=== PATIENT | female | born 1960 | race Caucasian/White ===

== ENCOUNTER 2016-07-18 03:53 | Emergency (ER) | payer OTHER ==
[~2016-07-18] VITALS: Ht 172.7 cm; Wt 49.6 kg
[~2016-07-18 03:53] MED LIST: ACTOS15 MG; ACTOS15 MG PO; ALBUTEROL SULF8.5 GM IH; ASPIR-LOW81 MG PO; ASPIRIN EC325 MG PO; ASPIRIN325 MG PO; ATARAX,VISTARIL25 MG PO; ATIVAN0.5 MG PO; BENADRYL25 MG PO; CELEXA20 MG PO; CELEXA40 MG PO; CHOLESTEROL MED; CHOLESTEROL PO; CITALOPRAM HBR20 MG PO; CITALOPRAM HBR40 M1 PO; CITALOPRAM HBR40 MG; CITALOPRAM HBR40 MG PO; COUMADIN,JANTOVE1 MG PO; COUMADIN1 MG PO; COUMADIN5 MG PO; COUMADIN7.5 MG PO; CRESTOR10 MG; CRESTOR10 MG PO; Coumadin,Jantoven PO; DEPRESSION MED; DOXYCYCLINE HY100 MG PO; DULCOLAX10 MG PR; ELIMITE 5% CREA60 GM TP; ESCITALOPRAM OX20 MG PO; Ecotrin PO; FLEET ENEMA-AD118 ML PR; FUROSEMIDE20 MG PO; GLUCOPHAGE500 MG PO; IPRATR-ALBUTEROL3 ML IH; IPRATROPIU0.2 MG/1 M IH; KENALOG,ARISTOC15 G2 TP; LAC-HYDRIN 12%225 GM TP; LASIX20 MG PO; LEVOFLOXACIN750 MG PO; LEVOTHROID,S0.075 MG PO; LEVOTHROID88 MCG PO; LEVOTHYROXINE100 MCG; LEVOTHYROXINE75 MCG PO; LEVOTHYROXINE88 MCG PO; LEXAPRO20 MG PO; LIDEX 0.05% OIN15 GM TP; LO-DOSE ASPIRIN81 M1 PO; LOPERAMIDE2 M1 PO; LOPERAMIDE2 MG PO; LORAZEPAM0.5 MG PO; LOVENOX100 MG/1 M PO; LOW DOSE ASPIRI81 M1 PO; Lasix PO; MITRAZOL 2% CRE45 GM TP; MOBIC15 MG PO; MOTRIN400 MG PO; NEXIUM40 MG PO; NITROGLYCERIN0.4 MG SL; NITROSTAT0.4 MG SL; NOVOLOG100 UNIT/2 SC; NOVOLOG100 UNIT/3; OMEPRAZOLE20 MG; OMEPRAZOLE20 MG PO; ONDANSETRON HCL4 M1; PANTOPRAZOLE SO40 MG; PHENERGAN-CODE120 ML PO; PHILLIPS'400 MG/5 M PO; PIOGLITAZONE HC15 MG; PREDNISONE10 MG PO; PREDNISONE20 MG PO; PREDNISONE50 MG PO; PREVACID; PRILOSEC20 MG PO; PROAIR HFA8.5 GM; PROAIR HFA8.5 GM IH; PROMETHAZINE HC25 M1 PO; PROVENTIL,2.5 MG/3 M IH; RANITIDINE HCL150 M1 PO; RANITIDINE HCL150 MG PO; ROBITUSSIN100 MG/5 M PO; SIMVASTATIN10 MG PO; SIMVASTATIN40 M1 PO; SIMVASTATIN80 M1 PO; SPIRIVA1 INHALATI; SPIRIVA1 INHALATI IH; SYNTHROID PO; SYNTHROID75 MCG PO; SYNTHROID88 MCG PO; THEO-24200 MG PO; THEO-24400 MG PO; THEO-DUR,THEOC200 MG PO; THEOPHYLLINE A200 M1 PO; TIROSINT75 MCG PO; TYLENOL REGULA325 MG PO; ULTRAM50 MG PO; VANICREAM113 GM TP; WARFARIN SODIUM5 MG; XARELTO20 MG PO; Xarelto PO; ZANTAC150 MG PO; ZOFRAN ODT4 MG PO; ZOFRAN4 MG PO; ZOFRAN8 MG PO; Zofran PO; [UNRECOGNIZED DRUG - OTHER]
[2016-07-18 04:27] LABS: HEMATOCRIT 34.4 % (36.0-46.0); MCH 30.1 PG (29.0-34.0); MCHC 33.7 G/DL (30.0-36.0); MCV 89.4 FL (83-99); MEAN PLAT.VOLUME 8.8 uM^3 (9.5-12.4); PLATELET COUNT 228 K/uL (156-360); RBC DIS.WIDTH-CV 12.7 % (11.8-14.6); RBC DIS.WIDTH-SD 40.3 % (39-53); RED BLOOD COUNT 3.85 M/uL (3.80-5.20); WHITE BLOOD COUNT 5.4 K/uL (4.1-10.2)
[2016-07-18 04:45] LABS: TROP-I INTERPRETATION NEGATIVE; TROPONIN-I < 0.01 ng/mL (0.0-0.30)
[2016-07-18 04:47] LABS: CHLORIDE 107 mEq/L (99-109); SODIUM 140 mEq/L (136-147)
[2016-07-18 04:48] LABS: GLUCOSE 95 mg/dL (70-99)
[2016-07-18 04:50] LABS: ANION GAP 8 MEQ/L (2-14)
[2016-07-18 04:52] LABS: GFR ESTIMATE (CALCULATED) > 59 mL/min/
[2016-07-18 04:53] LABS: UREA NITROGEN (BUN) 14 mg/dL (9-23)
[2016-07-18 05:55] LABS: TROP-I INTERPRETATION NEGATIVE; TROPONIN-I < 0.01 ng/mL (0.0-0.30)
[2016-07-18 06:27] VITALS: BP 103/66
== END 2016-07-18 07:22 ==
LOC: EME → EDBD 03:53 → EME 03:53
PROVIDERS: Emergency Medicine
DX: R07.9 Chest pain, unspecified (principal); J45.909 Unspecified asthma, uncomplicated; J44.9 Chronic obstructive pulmonary disease, unspecified; E11.9 Type 2 diabetes mellitus without complications; E78.5 Hyperlipidemia, unspecified; F03.90 Unspecified dementia, unspecified severity, without behavioral disturbance, psychotic disturbance, mood disturbance, and anxiety; Z86.718 Personal history of other venous thrombosis and embolism; Z86.711 Personal history of pulmonary embolism; F17.200 Nicotine dependence, unspecified, uncomplicated
CPT/HCPCS: 71020; 80048; 83880; 84484; 85027; 93005; 99281; 99285

== ENCOUNTER 2016-09-18 13:25 | Emergency (ER) | payer OTHER ==
[~2016-09-18] VITALS: Ht 172.7 cm; Wt 98.1 kg
[2016-09-18 14:18] LABS: EOSINOPHIL (%) 2.8 % (0-5); EOSINOPHIL COUNT 0.1 K/uL (0-0.3); HEMATOCRIT 35.7 % (36.0-46.0); IMMATURE GRANULOCYTE (%) 0.3 % (0.0-0.7); INSTRUMENT ABS NEUTROPHIL CT 1.9 K/uL; LYMPHOCYTE COUNT 1.6 K/uL (1.0-2.8); MCH 28.5 PG (29.0-34.0); MCHC 33.1 G/DL (30.0-36.0); MCV 86.2 FL (83-99); MEAN PLAT.VOLUME 9.5 uM^3 (9.5-12.4); MONOCYTE (%) 8.3 % (3-12); MONOCYTE COUNT 0.3 K/uL (0-0.8); NEUTROPHIL (%) 48.5 % (45-76); NEUTROPHIL COUNT 1.9 K/uL (1.8-6.4); PLATELET COUNT 211 K/uL (156-360); RBC DIS.WIDTH-CV 13.2 % (11.8-14.6); RBC DIS.WIDTH-SD 41.1 % (39-53); RED BLOOD COUNT 4.14 M/uL (3.80-5.20)
[2016-09-18 14:27] LABS: INTER. NORMALIZED RATIO 1.1; PROTHROMBIN TIME 11.5 (9.2-11.2); PTT 29.4 (25-32)
[2016-09-18 14:32] LABS: CHLORIDE 109 mEq/L (99-109); POTASSIUM 3.7 mEq/L (3.7-5.4); SODIUM 143 mEq/L (136-147)
[2016-09-18 14:33] LABS: GLUCOSE 90 mg/dL (70-99)
[2016-09-18 14:35] LABS: ANION GAP 14 MEQ/L (2-14)
[2016-09-18 14:37] LABS: GFR ESTIMATE (CALCULATED) > 59 mL/min/
[2016-09-18 14:38] LABS: UREA NITROGEN (BUN) 9 mg/dL (9-23)
[2016-09-18 14:38] LABS: TROP-I INTERPRETATION NEGATIVE; TROPONIN-I < 0.01 ng/mL (0.0-0.30)
[2016-09-18 17:07] LABS: TROP-I INTERPRETATION NEGATIVE; TROPONIN-I < 0.01 ng/mL (0.0-0.30)
[2016-09-18 17:57] VITALS: BP 119/65
== END 2016-09-18 18:04 ==
LOC: EME → EDBD 13:25 → EME 18:04
PROVIDERS: Emergency Medicine
DX: R07.89 Other chest pain (principal); F41.9 Anxiety disorder, unspecified; J45.909 Unspecified asthma, uncomplicated; J44.9 Chronic obstructive pulmonary disease, unspecified; E11.9 Type 2 diabetes mellitus without complications; E78.5 Hyperlipidemia, unspecified; F03.90 Unspecified dementia, unspecified severity, without behavioral disturbance, psychotic disturbance, mood disturbance, and anxiety; K21.9 Gastro-esophageal reflux disease without esophagitis; Z86.718 Personal history of other venous thrombosis and embolism; Z86.711 Personal history of pulmonary embolism; F17.200 Nicotine dependence, unspecified, uncomplicated
CPT/HCPCS: 71010; 80048; 84484; 85025; 85610; 85730; 93005; 94640; 99281; 99285

== ENCOUNTER 2016-10-24 22:48 | Emergency (ER) | payer OTHER ==
[~2016-10-24] VITALS: Ht 172.7 cm; Wt 71.3 kg
[2016-10-24] MEDS ORDERED: KEFLEX500 MG PO (23:17)
[2016-10-25 01:24] VITALS: BP 100/65
== END 2016-10-25 01:37 ==
LOC: EME 22:48
DX: L03.116 Cellulitis of left lower limb (principal); J45.909 Unspecified asthma, uncomplicated; J44.9 Chronic obstructive pulmonary disease, unspecified; E11.9 Type 2 diabetes mellitus without complications; E78.5 Hyperlipidemia, unspecified; F03.90 Unspecified dementia, unspecified severity, without behavioral disturbance, psychotic disturbance, mood disturbance, and anxiety; Z86.718 Personal history of other venous thrombosis and embolism; Z86.711 Personal history of pulmonary embolism; F17.200 Nicotine dependence, unspecified, uncomplicated
CPT/HCPCS: 99281; 99284

== ENCOUNTER 2016-11-24 14:58 | Emergency (ER) | payer OTHER ==
[~2016-11-24] VITALS: Ht 172.7 cm; Wt 73.2 kg
[~2016-11-24 14:58] MED LIST changes: +KEFLEX500 MG PO
[2016-11-24 16:57] LABS: HEMATOCRIT 34.7 % (36.0-46.0); MCHC 33.1 G/DL (30.0-36.0); MCV 87.6 FL (83-99); PLATELET COUNT 204 K/uL (156-360); RBC DIS.WIDTH-CV 14.3 % (11.8-14.6); RBC DIS.WIDTH-SD 46.1 % (39-53); RED BLOOD COUNT 3.96 M/uL (3.80-5.20); WHITE BLOOD COUNT 4.4 K/uL (4.1-10.2)
[2016-11-24 17:07] LABS: CHLORIDE 108 mEq/L (99-109); POTASSIUM 3.6 mEq/L (3.7-5.4); SODIUM 143 mEq/L (136-147)
[2016-11-24 17:08] LABS: GLUCOSE 101 mg/dL (70-99)
[2016-11-24 17:10] LABS: ANION GAP 10 MEQ/L (2-14)
[2016-11-24 17:12] LABS: GFR ESTIMATE (CALCULATED) 55 mL/min/
[2016-11-24 17:13] LABS: UREA NITROGEN (BUN) 12 mg/dL (9-23)
[2016-11-24 17:20] LABS: TROP-I INTERPRETATION NEGATIVE; TROPONIN-I < 0.01 ng/mL (0.0-0.30)
[2016-11-24] MEDS ORDERED: PREDNISONE50 MG PO (17:34)
[2016-11-24 18:49] VITALS: BP 112/74
== END 2016-11-24 18:50 ==
LOC: EME 14:58
PROVIDERS: Emergency Medicine
DX: J44.1 Chronic obstructive pulmonary disease with (acute) exacerbation (principal); I20.9 Angina pectoris, unspecified; E11.9 Type 2 diabetes mellitus without complications; E78.5 Hyperlipidemia, unspecified; F17.200 Nicotine dependence, unspecified, uncomplicated; Z95.828 Presence of other vascular implants and grafts; Z88.2 Allergy status to sulfonamides
CPT/HCPCS: 71020; 80048; 84484; 85027; 93005; 94640; 99281; 99285; J7512

== ENCOUNTER 2017-01-12 13:06 | Emergency (ER) | payer OTHER ==
[~2017-01-12] VITALS: Ht 172.7 cm; Wt 72.4 kg
[2017-01-12 15:02] LABS: HEMATOCRIT 33.9 % (36.0-46.0); MCH 29.8 PG (29.0-34.0); MCHC 32.2 G/DL (30.0-36.0); MCV 92.6 FL (83-99); MEAN PLAT.VOLUME 9.2 uM^3 (9.5-12.4); PLATELET COUNT 207 K/uL (156-360); RBC DIS.WIDTH-SD 51.4 % (39-53); RED BLOOD COUNT 3.66 M/uL (3.80-5.20); WHITE BLOOD COUNT 4.5 K/uL (4.1-10.2)
[2017-01-12 15:13] LABS: CHLORIDE 113 mEq/L (99-109); POTASSIUM 3.8 mEq/L (3.7-5.4); SODIUM 142 mEq/L (136-147)
[2017-01-12 15:15] LABS: GLUCOSE 99 mg/dL (70-99)
[2017-01-12 15:16] LABS: ANION GAP 5 MEQ/L (2-14)
[2017-01-12 15:17] LABS: TOTAL BILIRUBIN 0.6 mg/dL (0.0-1.0)
[2017-01-12 15:18] LABS: ALKALINE PHOSPHATASE 72 IU/L (3-129)
[2017-01-12 15:19] LABS: GFR ESTIMATE (CALCULATED) > 59 mL/min/
[2017-01-12 15:20] LABS: UREA NITROGEN (BUN) 5 mg/dL (9-23)
[2017-01-12 15:23] LABS: TROP-I INTERPRETATION NEGATIVE; TROPONIN-I < 0.01 ng/mL (0.0-0.30)
[2017-01-12 15:44] LABS: ADD MIUA? YES; BILIRUBIN NEGATIVE; BLOOD NEGATIVE; COLOR YELLOW ((YELLOW)); GLUCOSE (STRIP) NEGATIVE; KETONES NEGATIVE; LEUKOCYTES SMALL; NITRITE NEGATIVE; PROTEIN (STRIP) NEGATIVE; SPECIFIC GRAVITY 1.018 (1.000-1.030)
[2017-01-12 15:48] LABS: BACTERIA NONE SEEN /HPF; EPITHELIAL CELLS RARE /HPF; MUCUS 2+ /LPF; RED BLOOD CELLS 0-5 /HPF (0-5); UCUL ADDED? NO; WHITE BLOOD CELLS 0-5 /HPF (0-5)
[2017-01-12] MEDS ORDERED: KEFLEX500 MG PO (16:10)
[2017-01-12 16:58] VITALS: BP 00/0
== END 2017-01-12 17:09 | disposition home or self-care (01) ==
LOC: EME 13:06
PROVIDERS: Nurse Practitioner Family
DX: N39.0 Urinary tract infection, site not specified (principal); M77.32 Calcaneal spur, left foot; G89.29 Other chronic pain; E78.5 Hyperlipidemia, unspecified; F32.9 Major depressive disorder, single episode, unspecified; J44.9 Chronic obstructive pulmonary disease, unspecified; F17.200 Nicotine dependence, unspecified, uncomplicated; Z86.718 Personal history of other venous thrombosis and embolism
CPT/HCPCS: 71020; 80053; 81003; 84484; 85027; 99281; 99283

== ENCOUNTER 2017-07-18 15:54 | Emergency (ER) | payer OTHER ==
[~2017-07-18] VITALS: Ht 172.7 cm; Wt 69.0 kg
[2017-07-18 16:28] LABS: HEMATOCRIT 37.2 % (36.0-46.0); HEMOGLOBIN 12.3 G/DL (11.9-15.5); MCH 30.7 PG (29.0-34.0); MCHC 33.1 G/DL (30.0-36.0); MCV 92.8 FL (83-99); PLATELET COUNT 265 K/uL (156-360); RBC DIS.WIDTH-CV 13.5 % (11.8-14.6); RBC DIS.WIDTH-SD 45.9 % (39-53); RED BLOOD COUNT 4.01 M/uL (3.80-5.20); WHITE BLOOD COUNT 5.1 K/uL (4.1-10.2)
[2017-07-18 16:38] LABS: ALBUMIN 3.8 g/dL (3.2-4.8); CHLORIDE 108 mEq/L (99-109); POTASSIUM 4.5 mEq/L (3.7-5.4); SODIUM 141 mEq/L (136-147)
[2017-07-18 16:41] LABS: GLUCOSE 109 mg/dL (70-99); TOTAL PROTEIN 6.7 g/dL (6.4-8.3)
[2017-07-18 16:43] LABS: TOTAL BILIRUBIN 0.9 mg/dL (0.0-1.0)
[2017-07-18 16:44] LABS: ALKALINE PHOSPHATASE 92 IU/L (3-129); CREATININE 1.1 mg/dL (0.6-1.3); GFR ESTIMATE (CALCULATED) 55 mL/min/
[2017-07-18 16:45] LABS: UREA NITROGEN (BUN) 7 mg/dL (9-23)
[2017-07-18 16:46] LABS: AST (GOT) 14 IU/L (2-34)
[2017-07-18 16:47] LABS: ALT (GPT) 9 IU/L (3-49)
[2017-07-18 16:50] LABS: APPEARANCE CLOUDY ((CLEAR)); BILIRUBIN NEGATIVE; BLOOD MODERATE; COLOR AMBER ((YELLOW)); GLUCOSE (STRIP) NEGATIVE; KETONES NEGATIVE; LEUKOCYTES LARGE; NITRITE NEGATIVE; PROTEIN (STRIP) 100; SPECIFIC GRAVITY 1.017 (1.000-1.030); UROBILINOGEN 0.2 MG/DL (0.2-1.0)
[2017-07-18 17:09] LABS: EPITHELIAL CELLS RARE /HPF; RED BLOOD CELLS 30-40 /HPF (0-5); WHITE BLOOD CELLS TNTC /HPF (0-5)
[2017-07-18 17:10] LABS: BACTERIA 1+ /HPF; HYALINE CASTS 0-5 /LPF; MUCUS 1+ /LPF; UCUL ADDED? YES
[2017-07-18] MEDS ORDERED: ZOFRAN4 MG PO (18:44)
[2017-07-18] MEDS ORDERED: KEFLEX500 MG PO (18:44)
[2017-07-18 19:48] VITALS: BP 125/73
== END 2017-07-18 20:04 | disposition home or self-care (01) ==
LOC: EME 15:54
PROVIDERS: Physician Assistant
DX: N39.0 Urinary tract infection, site not specified (principal); R11.2 Nausea with vomiting, unspecified; R19.7 Diarrhea, unspecified; R55 Syncope and collapse; K44.9 Diaphragmatic hernia without obstruction or gangrene; F03.90 Unspecified dementia, unspecified severity, without behavioral disturbance, psychotic disturbance, mood disturbance, and anxiety; J44.9 Chronic obstructive pulmonary disease, unspecified; E78.00 Pure hypercholesterolemia, unspecified; Z90.710 Acquired absence of both cervix and uterus; Z90.49 Acquired absence of other specified parts of digestive tract; Z86.711 Personal history of pulmonary embolism; Z86.718 Personal history of other venous thrombosis and embolism; Z79.01 Long term (current) use of anticoagulants; Z88.2 Allergy status to sulfonamides; F17.210 Nicotine dependence, cigarettes, uncomplicated
CPT/HCPCS: 74176; 80053; 81003; 85027; 87077; 87086; 87186; 87502; 93005; 99281; 99285; J0696; J7030

== ENCOUNTER 2017-08-07 15:28 | Emergency (ER) | payer OTHER ==
[~2017-08-07] VITALS: Ht 172.7 cm; Wt 66.5 kg
[2017-08-07 17:49] LABS: HEMATOCRIT 37.3 % (36.0-46.0); HEMOGLOBIN 12.3 G/DL (11.9-15.5); MCH 30.6 PG (29.0-34.0); MCV 92.8 FL (83-99); PLATELET COUNT 228 K/uL (156-360); RBC DIS.WIDTH-CV 13.2 % (11.8-14.6); RBC DIS.WIDTH-SD 44.9 % (39-53); RED BLOOD COUNT 4.02 M/uL (3.80-5.20); WHITE BLOOD COUNT 4.9 K/uL (4.1-10.2)
[2017-08-07 18:01] LABS: CHLORIDE 110 mEq/L (99-109); POTASSIUM 4.3 mEq/L (3.7-5.4); SODIUM 140 mEq/L (136-147)
[2017-08-07 18:03] LABS: GLUCOSE 87 mg/dL (70-99)
[2017-08-07 18:07] LABS: GFR ESTIMATE (CALCULATED) > 59 mL/min/
[2017-08-07 18:08] LABS: UREA NITROGEN (BUN) 10 mg/dL (9-23)
[2017-08-07 18:12] LABS: TROP-I INTERPRETATION NEGATIVE; TROPONIN-I < 0.01 ng/mL (0.0-0.30)
[2017-08-07] MEDS ORDERED: DUONEB 2.5-0.5 M3 ML AEROSOL (22:10)
[2017-08-07] MEDS ORDERED: NEBULIZER MC (22:10)
[2017-08-07 22:54] VITALS: BP 122/69
== END 2017-08-07 23:06 | disposition home or self-care (01) ==
LOC: EME 15:28
DX: R07.2 Precordial pain (principal); J44.1 Chronic obstructive pulmonary disease with (acute) exacerbation; J06.9 Acute upper respiratory infection, unspecified; E11.9 Type 2 diabetes mellitus without complications; E78.5 Hyperlipidemia, unspecified; F03.90 Unspecified dementia, unspecified severity, without behavioral disturbance, psychotic disturbance, mood disturbance, and anxiety; F17.200 Nicotine dependence, unspecified, uncomplicated; F41.9 Anxiety disorder, unspecified; F32.9 Major depressive disorder, single episode, unspecified; Z79.01 Long term (current) use of anticoagulants; Z86.718 Personal history of other venous thrombosis and embolism; Z86.711 Personal history of pulmonary embolism; Z88.2 Allergy status to sulfonamides; Z88.8 Allergy status to other drugs, medicaments and biological substances; Z91.09 Other allergy status, other than to drugs and biological substances
CPT/HCPCS: 71046; 80048; 84484; 85027; 93005; 99281; 99285

== ENCOUNTER 2017-09-27 20:01 | Emergency (ER) | payer OTHER ==
[~2017-09-27] VITALS: Ht 170.2 cm; Wt 68.0 kg
[~2017-09-27 20:01] MED LIST changes: +DUONEB 2.5-0.5 M3 ML AEROSOL; +NEBULIZER MC
[2017-09-27 20:59] LABS: HEMATOCRIT 34.4 % (36.0-46.0); HEMOGLOBIN 11.7 G/DL (11.9-15.5); MCH 30.9 PG (29.0-34.0); MCV 90.8 FL (83-99); PLATELET COUNT 233 K/uL (156-360); RBC DIS.WIDTH-CV 13.5 % (11.8-14.6); RED BLOOD COUNT 3.79 M/uL (3.80-5.20); WHITE BLOOD COUNT 4.8 K/uL (4.1-10.2)
[2017-09-27 21:13] LABS: CHLORIDE 105 mEq/L (99-109); POTASSIUM 3.6 mEq/L (3.7-5.4); SODIUM 138 mEq/L (136-147)
[2017-09-27 21:15] LABS: GLUCOSE 93 mg/dL (70-99)
[2017-09-27 21:19] LABS: GFR ESTIMATE (CALCULATED) > 59 mL/min/
[2017-09-27 21:20] LABS: UREA NITROGEN (BUN) 13 mg/dL (9-23)
[2017-09-27 21:21] LABS: TROP-I INTERPRETATION NEGATIVE; TROPONIN-I < 0.01 ng/mL (0.0-0.30)
[2017-09-28 00:37] LABS: TROP-I INTERPRETATION NEGATIVE; TROPONIN-I < 0.01 ng/mL (0.0-0.30)
[2017-09-28 00:58] VITALS: BP 103/63
== END 2017-09-28 00:59 | disposition home or self-care (01) ==
LOC: EME 20:01
PROVIDERS: Physician Assistant
DX: R07.9 Chest pain, unspecified (principal); M79.89 Other specified soft tissue disorders; M79.605 Pain in left leg; I89.0 Lymphedema, not elsewhere classified; J44.9 Chronic obstructive pulmonary disease, unspecified; E78.5 Hyperlipidemia, unspecified; E11.9 Type 2 diabetes mellitus without complications; F03.90 Unspecified dementia, unspecified severity, without behavioral disturbance, psychotic disturbance, mood disturbance, and anxiety; Z86.711 Personal history of pulmonary embolism; Z86.718 Personal history of other venous thrombosis and embolism; Z79.01 Long term (current) use of anticoagulants; Z88.2 Allergy status to sulfonamides; F17.200 Nicotine dependence, unspecified, uncomplicated
CPT/HCPCS: 71046; 80048; 84484; 85027; 93005; 99281; 99284; Q0169

== ENCOUNTER 2017-10-21 12:20 | Emergency (ER) | payer OTHER ==
[~2017-10-21] VITALS: Ht 170.2 cm; Wt 68.1 kg
[2017-10-21 15:29] LABS: HEMATOCRIT 35.4 % (36.0-46.0); HEMOGLOBIN 12.1 G/DL (11.9-15.5); MCH 31.3 PG (29.0-34.0); MCHC 34.2 G/DL (30.0-36.0); MCV 91.5 FL (83-99); PLATELET COUNT 227 K/uL (156-360); RBC DIS.WIDTH-CV 13.4 % (11.8-14.6); RBC DIS.WIDTH-SD 45.1 % (39-53); RED BLOOD COUNT 3.87 M/uL (3.80-5.20)
[2017-10-21 15:38] LABS: CHLORIDE 107 mEq/L (99-109); POTASSIUM 4.3 mEq/L (3.7-5.4); SODIUM 141 mEq/L (136-147)
[2017-10-21 15:40] LABS: GLUCOSE 81 mg/dL (70-99)
[2017-10-21 15:44] LABS: CREATININE 0.9 mg/dL (0.6-1.3); GFR ESTIMATE (CALCULATED) > 59 mL/min/; UREA NITROGEN (BUN) 9 mg/dL (9-23)
[2017-10-21 15:50] LABS: TROP-I INTERPRETATION NEGATIVE; TROPONIN-I < 0.01 ng/mL (0.0-0.30)
[2017-10-21 17:16] VITALS: BP 104/34
== END 2017-10-21 17:19 | disposition home or self-care (01) ==
LOC: EME 12:20
PROVIDERS: Physician Assistant
DX: M17.12 Unilateral primary osteoarthritis, left knee (principal); R22.42 Localized swelling, mass and lump, left lower limb; Z86.711 Personal history of pulmonary embolism; Z86.718 Personal history of other venous thrombosis and embolism; F17.200 Nicotine dependence, unspecified, uncomplicated; J44.9 Chronic obstructive pulmonary disease, unspecified; E78.5 Hyperlipidemia, unspecified; E11.9 Type 2 diabetes mellitus without complications; F03.90 Unspecified dementia, unspecified severity, without behavioral disturbance, psychotic disturbance, mood disturbance, and anxiety; F32.9 Major depressive disorder, single episode, unspecified; F41.9 Anxiety disorder, unspecified; Z95.828 Presence of other vascular implants and grafts; Z88.2 Allergy status to sulfonamides
CPT/HCPCS: 71046; 73564; 80048; 84484; 85027; 93005; 93971; 99281; 99284

== ENCOUNTER 2017-11-06 19:35 | Emergency (ER) | payer OTHER ==
[~2017-11-06] VITALS: Ht 170.2 cm; Wt 65.4 kg
[2017-11-06 20:09] LABS: HEMOGLOBIN 12.2 G/DL (11.9-15.5); MCH 30.9 PG (29.0-34.0); MCHC 33.9 G/DL (30.0-36.0); MCV 91.1 FL (83-99); PLATELET COUNT 209 K/uL (156-360); RBC DIS.WIDTH-CV 13.3 % (11.8-14.6); RBC DIS.WIDTH-SD 44.9 % (39-53); RED BLOOD COUNT 3.95 M/uL (3.80-5.20); WHITE BLOOD COUNT 3.7 K/uL (4.1-10.2)
[2017-11-06 20:37] LABS: CHLORIDE 108 MEQ/L (99-109); POTASSIUM 3.6 MEQ/L (3.7-5.4); SODIUM 139 MEQ/L (136-147)
[2017-11-06 20:43] LABS: CREATININE 1.1 MG/DL (0.6-1.3); GFR ESTIMATE (CALCULATED) 54 mL/min/; GLUCOSE 95 mg/dL (70-99); UREA NITROGEN (BUN) 8 mg/dL (9-23)
[2017-11-06 20:47] LABS: TROP-I INTERPRETATION NEGATIVE; TROPONIN-I < 0.01 ng/mL (0.0-0.30)
[2017-11-06] MEDS ORDERED: PREDNISONE50 MG PO (21:08)
[2017-11-06] MEDS ORDERED: GUAIFEN-CODEINE5 ML PO (22:13)
[2017-11-06 22:28] VITALS: BP 115/72
== END 2017-11-06 22:30 | disposition home or self-care (01) ==
LOC: EME 19:35
DX: J44.1 Chronic obstructive pulmonary disease with (acute) exacerbation (principal); I44.4 Left anterior fascicular block; R94.31 Abnormal electrocardiogram [ECG] [EKG]; F17.200 Nicotine dependence, unspecified, uncomplicated; E78.5 Hyperlipidemia, unspecified; E11.9 Type 2 diabetes mellitus without complications; F03.90 Unspecified dementia, unspecified severity, without behavioral disturbance, psychotic disturbance, mood disturbance, and anxiety; F41.9 Anxiety disorder, unspecified; F32.9 Major depressive disorder, single episode, unspecified; Z79.01 Long term (current) use of anticoagulants; Z86.718 Personal history of other venous thrombosis and embolism; Z86.711 Personal history of pulmonary embolism; Z88.2 Allergy status to sulfonamides; Z88.8 Allergy status to other drugs, medicaments and biological substances; Z91.09 Other allergy status, other than to drugs and biological substances
CPT/HCPCS: 71046; 80048; 84484; 85027; 93005; 94640; 99281; 99284

== ENCOUNTER 2017-11-15 18:03 | Observation (INO) | payer OTHER ==
[~2017-11-15] VITALS: Ht 170.2 cm; Wt 64.8 kg
[~2017-11-15 18:03] MED LIST changes: +GUAIFEN-CODEINE5 ML PO
[2017-11-15 18:38] LABS: HEMATOCRIT 37.7 % (36.0-46.0); HEMOGLOBIN 12.8 G/DL (11.9-15.5); MCH 31.1 PG (29.0-34.0); MCV 91.7 FL (83-99); RBC DIS.WIDTH-CV 13.3 % (11.8-14.6); RBC DIS.WIDTH-SD 45.2 % (39-53); RED BLOOD COUNT 4.11 M/uL (3.80-5.20); WHITE BLOOD COUNT 7.8 K/uL (4.1-10.2)
[2017-11-15 18:44] LABS: PLATELET COUNT 274 K/uL (156-360)
[2017-11-15 18:49] LABS: CHLORIDE 106 mEq/L (99-109); POTASSIUM 3.9 mEq/L (3.7-5.4); SODIUM 143 mEq/L (136-147)
[2017-11-15 18:51] LABS: GLUCOSE 99 mg/dL (70-99)
[2017-11-15 18:55] LABS: CREATININE 1.2 mg/dL (0.6-1.3); GFR ESTIMATE (CALCULATED) 49 mL/min/
[2017-11-15 18:56] LABS: UREA NITROGEN (BUN) 8 mg/dL (9-23)
[2017-11-15 21:12] LABS: TROP-I INTERPRETATION NEGATIVE; TROPONIN-I < 0.01 ng/mL (0.0-0.30)
[2017-11-15 23:52] LABS: APPEARANCE CLEAR ((CLEAR)); BILIRUBIN NEGATIVE; BLOOD NEGATIVE; COLOR YELLOW ((YELLOW)); GLUCOSE (STRIP) NEGATIVE; KETONES NEGATIVE; LEUKOCYTES NEGATIVE; NITRITE NEGATIVE; PROTEIN (STRIP) NEGATIVE; SPECIFIC GRAVITY 1.006 (1.000-1.030); UCUL ADDED? NO; UROBILINOGEN 0.2 MG/DL (0.2-1.0)
[2017-11-16 00:01] LABS: AMPHETAMINE NEGATIVE (500 ng/mL); BARBITURATES NEGATIVE (200 ng/mL); BENZODIAZEPINES PRESUMPTIVE POSITIVE (150 ng/mL); BUPRENORPHINE NEGATIVE (10 ng/mL); COCAINE NEGATIVE (150 ng/mL); METHADONE NEGATIVE (200 ng/mL); METHAMPHETAMINE NEGATIVE (500 ng/mL); OPIATES (MORPHINE) NEGATIVE (100 ng/mL); OXYCODONE NEGATIVE (100 ng/mL); PHENCYCLIDINE NEGATIVE (25 ng/mL); PROPOXYPHENE NEGATIVE (300 ng/mL); THC CANNABINOIDS NEGATIVE (50 ng/mL); TRICYCLIC ANTIDEPRESSANTS NEGATIVE (300 ng/mL)
[2017-11-16 00:50] LABS: BENZODIAZEPINES, URINE SCREEN Negative (200 ng/mL)
[2017-11-16 03:10] VITALS: BP 120/57
[2017-11-16 03:46] LABS: TROP-I INTERPRETATION NEGATIVE; TROPONIN-I 0.02 ng/mL (0.0-0.30)
[2017-11-16 08:09] LABS: THYROTROPIN (TSH) 0.87 MIU/L (0.4-5.5)
[2017-11-16 09:27] LABS: TROP-I INTERPRETATION NEGATIVE; TROPONIN-I < 0.01 ng/mL (0.0-0.30)
[2017-11-16 09:54] LABS: FOLIC ACID (FOLATE) 12.2 NG/ML (5.0-22.0)
[2017-11-16 10:59] LABS: TREPONEMA ANTIBODY NEGATIVE (NEGATIVE)
[2017-11-16 12:21] VITALS: BP 107/55
[2017-11-16] MEDS ORDERED: XARELTO20 MG PO (13:44)
[2017-11-16 15:06] VITALS: BP 128/60
[2017-11-16] MEDS ORDERED: NEXIUM40 MG PO (15:20)
[2017-11-16] MEDS ORDERED: CELEXA20 MG PO (15:21)
[2017-11-16] MEDS ORDERED: FUROSEMIDE20 MG PO (15:21)
[2017-11-16] MEDS ORDERED: INCRUSE ELLI62.5 MCG IH (15:22)
[2017-11-16] MEDS ORDERED: SYNTHROID75 MCG PO (15:23)
[2017-11-16] MEDS ORDERED: PRAVASTATIN SOD10 MG PO (15:24)
[2017-11-16] MEDS ORDERED: TRAZODONE HCL50 MG PO (15:25)
[2017-11-16] MEDS ORDERED: ATIVAN0.5 MG PO (15:26)
[2017-11-16] MEDS ORDERED: POTASSIUM CHLO10 ME4 PO (15:29)
[2017-11-16] MEDS ORDERED: DUONEB 2.5-0.5 M3 ML AEROSOL (15:30)
[2017-11-16] MEDS ORDERED: TRAMADOL HCL50 MG PO (15:33)
[2017-11-16] MEDS ORDERED: KENALOG,ARISTOC15 GM TP (15:34)
[2017-11-16] MEDS ORDERED: NITROGLYCERIN0.4 MG SL (15:40)
[2017-11-16 18:19] VITALS: BP 131/60
[2017-11-17 00:13] VITALS: BP 95/50
[2017-11-17 04:24] VITALS: BP 117/56
[2017-11-17 05:36] LABS: BASOPHIL (%) 0.2 % (0-1); EOSINOPHIL (%) 0 % (0-5); HEMATOCRIT 32.2 % (36.0-46.0); IMMATURE GRANULOCYTE (%) 0.4 % (0.0-0.7); LYMPHOCYTE (%) 29.4 % (15-42); LYMPHOCYTE COUNT 1.6 K/uL (1.0-2.8); MCH 30.9 PG (29.0-34.0); MCHC 32.9 G/DL (30.0-36.0); MCV 93.9 FL (83-99); MONOCYTE (%) 6.6 % (3-12); MONOCYTE COUNT 0.4 K/uL (0-0.8); NEUTROPHIL (%) 63.4 % (45-76); NEUTROPHIL COUNT 3.5 K/uL (1.8-6.4); PLATELET COUNT 203 K/uL (156-360); RBC DIS.WIDTH-CV 13.3 % (11.8-14.6); RBC DIS.WIDTH-SD 45.8 % (39-53); RED BLOOD COUNT 3.43 M/uL (3.80-5.20); WHITE BLOOD COUNT 5.6 K/uL (4.1-10.2)
[2017-11-17 05:43] LABS: HEMOGLOBIN 10.6 G/DL (11.9-15.5)
[2017-11-17 05:47] LABS: ALBUMIN 3.1 G/DL (3.2-4.8); ALKALINE PHOSPHATASE 68 IU/L (3-129); ALT (GPT) 6 IU/L (3-49); AST (GOT) 8 IU/L (2-34); CHLORIDE 108 MEQ/L (99-109); GFR ESTIMATE (CALCULATED) > 59 mL/min/; GLUCOSE 83 mg/dL (70-99); POTASSIUM 4.1 MEQ/L (3.7-5.4); SODIUM 140 MEQ/L (136-147); TOTAL PROTEIN 5.2 G/DL (6.4-8.3); UREA NITROGEN (BUN) 7 mg/dL (9-23)
[2017-11-17 08:30] VITALS: BP 110/62
[2017-11-17 11:42] VITALS: BP 117/66
[2017-11-17] MEDS ORDERED: CYANOCOBALAM1000 MCG PO (14:31)
[2017-11-17] MEDS ORDERED: VITAMIN D-32000 UNI2 PO (14:31)
== END 2017-11-17 16:50 | disposition home or self-care (01) ==
LOC: EME 18:03 → EDOF 11-16 02:03 → 4SOUTH 11-16 02:03 → ENRESERV 11-16 02:05 → 4SOUTH 11-16 02:50
PROVIDERS: Internal Medicine; Physician Assistant
DX: R42 Dizziness and giddiness (principal); J44.9 Chronic obstructive pulmonary disease, unspecified; Z86.718 Personal history of other venous thrombosis and embolism; E46 Unspecified protein-calorie malnutrition; E03.9 Hypothyroidism, unspecified; R00.1 Bradycardia, unspecified; F25.9 Schizoaffective disorder, unspecified; J32.0 Chronic maxillary sinusitis; R51 Headache; F17.210 Nicotine dependence, cigarettes, uncomplicated; Z90.710 Acquired absence of both cervix and uterus; Z95.828 Presence of other vascular implants and grafts; Z82.49 Family history of ischemic heart disease and other diseases of the circulatory system; Z88.2 Allergy status to sulfonamides; Z88.8 Allergy status to other drugs, medicaments and biological substances; Z91.048 Other nonmedicinal substance allergy status
CPT/HCPCS: 70450; 70551; 71046; 80048; 80053; 81003; 82140; 82306; 82607; 82746; 84443; 84484; 84999; 85025; 85027; 85379; 86780; 93005; 94640; 94640 76; 99202; 99281; 99285; G0378; G8978 GP CJ; G8979 GP CI; G8987 GO CJ; G8988 CI; J2405; J7030

== ENCOUNTER 2017-12-06 20:04 | Emergency (ER) | payer OTHER ==
[~2017-12-06] VITALS: Ht 170.2 cm; Wt 64.6 kg
[~2017-12-06 20:04] MED LIST changes: +CYANOCOBALAM1000 MCG PO; +INCRUSE ELLI62.5 MCG IH; +KENALOG,ARISTOC15 GM TP; +POTASSIUM CHLO10 ME4 PO; +PRAVASTATIN SOD10 MG PO; +TRAMADOL HCL50 MG PO; +TRAZODONE HCL50 MG PO; +VITAMIN D-32000 UNI2 PO
[2017-12-06 21:08] LABS: HEMATOCRIT 31.1 % (36.0-46.0); HEMOGLOBIN 10.6 G/DL (11.9-15.5); MCH 31.5 PG (29.0-34.0); MCHC 34.1 G/DL (30.0-36.0); MCV 92.6 FL (83-99); PLATELET COUNT 209 K/uL (156-360); RBC DIS.WIDTH-CV 13.6 % (11.8-14.6); RBC DIS.WIDTH-SD 45.8 % (39-53); RED BLOOD COUNT 3.36 M/uL (3.80-5.20); WHITE BLOOD COUNT 5.4 K/uL (4.1-10.2)
[2017-12-06 21:23] LABS: CHLORIDE 110 mEq/L (99-109); POTASSIUM 3.8 mEq/L (3.7-5.4); SODIUM 142 mEq/L (136-147)
[2017-12-06 21:25] LABS: GLUCOSE 84 mg/dL (70-99)
[2017-12-06 21:29] LABS: CREATININE 1.1 mg/dL (0.6-1.3); GFR ESTIMATE (CALCULATED) 54 mL/min/
[2017-12-06 21:30] LABS: UREA NITROGEN (BUN) 5 mg/dL (9-23)
[2017-12-06 21:41] LABS: APPEARANCE CLEAR ((CLEAR)); BILIRUBIN NEGATIVE; BLOOD SMALL; COLOR STRAW ((YELLOW)); GLUCOSE (STRIP) NEGATIVE; KETONES NEGATIVE; LEUKOCYTES TRACE; NITRITE NEGATIVE; PROTEIN (STRIP) NEGATIVE; SPECIFIC GRAVITY 1.003 (1.000-1.030); UROBILINOGEN 0.2 MG/DL (0.2-1.0)
[2017-12-06 21:54] LABS: BACTERIA NONE SEEN /HPF; EPITHELIAL CELLS NONE SEEN /HPF; MUCUS NONE SEEN /LPF; RED BLOOD CELLS 0-5 /HPF (0-5); WHITE BLOOD CELLS 0-5 /HPF (0-5)
[2017-12-06] MEDS ORDERED: PYRIDIUM100 MG PO (22:02)
[2017-12-06] MEDS ORDERED: KEFLEX500 MG PO (22:02)
[2017-12-06 22:18] VITALS: BP 108/66
== END 2017-12-06 22:19 | disposition home or self-care (01) ==
LOC: EME 20:04
PROVIDERS: Nurse Practitioner Family
DX: N30.01 Acute cystitis with hematuria (principal); E11.9 Type 2 diabetes mellitus without complications; E78.5 Hyperlipidemia, unspecified; F03.90 Unspecified dementia, unspecified severity, without behavioral disturbance, psychotic disturbance, mood disturbance, and anxiety; Z87.440 Personal history of urinary (tract) infections; F32.9 Major depressive disorder, single episode, unspecified; F41.9 Anxiety disorder, unspecified; J44.9 Chronic obstructive pulmonary disease, unspecified; Z88.2 Allergy status to sulfonamides; F17.200 Nicotine dependence, unspecified, uncomplicated
CPT/HCPCS: 80048; 81003; 85027; 99281; 99285

== ENCOUNTER 2017-12-18 13:17 | Emergency (ER) | payer OTHER ==
[~2017-12-18] VITALS: Ht 170.2 cm; Wt 63.7 kg
[~2017-12-18 13:17] MED LIST changes: +PYRIDIUM100 MG PO
[2017-12-18 15:06] LABS: APPEARANCE SL.HAZY ((CLEAR)); BILIRUBIN NEGATIVE; BLOOD MODERATE; COLOR YELLOW ((YELLOW)); GLUCOSE (STRIP) NEGATIVE; KETONES NEGATIVE; LEUKOCYTES LARGE; NITRITE NEGATIVE; PROTEIN (STRIP) NEGATIVE; SPECIFIC GRAVITY 1.019 (1.000-1.030)
[2017-12-18 15:28] LABS: BACTERIA 1+ /HPF; EPITHELIAL CELLS RARE /HPF; MUCUS NONE SEEN /LPF; RED BLOOD CELLS 0-5 /HPF (0-5); UCUL ADDED? YES; WHITE BLOOD CELLS TNTC /HPF (0-5)
[2017-12-18] MEDS ORDERED: CIPRO500 MG PO (15:35)
[2017-12-18] MEDS ORDERED: PYRIDIUM200 MG PO (15:35)
[2017-12-18 16:02] VITALS: BP 101/62
== END 2017-12-18 16:16 | disposition home or self-care (01) ==
LOC: EME 13:17
DX: N39.0 Urinary tract infection, site not specified (principal); J44.9 Chronic obstructive pulmonary disease, unspecified; E78.5 Hyperlipidemia, unspecified; E11.9 Type 2 diabetes mellitus without complications; F03.90 Unspecified dementia, unspecified severity, without behavioral disturbance, psychotic disturbance, mood disturbance, and anxiety; F41.9 Anxiety disorder, unspecified; F32.9 Major depressive disorder, single episode, unspecified; F17.200 Nicotine dependence, unspecified, uncomplicated; Z87.440 Personal history of urinary (tract) infections; Z86.718 Personal history of other venous thrombosis and embolism; Z86.711 Personal history of pulmonary embolism; Z79.01 Long term (current) use of anticoagulants; Z88.2 Allergy status to sulfonamides; Z88.8 Allergy status to other drugs, medicaments and biological substances
CPT/HCPCS: 81003; 81025; 87086 GA; 99281; 99283

== ENCOUNTER 2018-03-05 19:00 | Observation (INO) | payer OTHER ==
[~2018-03-05] VITALS: Ht 170.2 cm; Wt 66.7 kg
[~2018-03-05 19:00] MED LIST changes: +CIPRO500 MG PO; +PYRIDIUM200 MG PO
[2018-03-05 19:26] LABS: HEMATOCRIT 34.2 % (36.0-46.0); HEMOGLOBIN 11.6 G/DL (11.9-15.5); MCHC 33.9 G/DL (30.0-36.0); MCV 94.5 FL (83-99); PLATELET COUNT 182 K/uL (156-360); RBC DIS.WIDTH-CV 13.4 % (11.8-14.6); RBC DIS.WIDTH-SD 46.5 % (39-53); RED BLOOD COUNT 3.62 M/uL (3.80-5.20); WHITE BLOOD COUNT 4.3 K/uL (4.1-10.2)
[2018-03-05 19:37] LABS: INTER. NORMALIZED RATIO 1.1
[2018-03-05 19:39] LABS: D-DIMER ELISA < 150.00 ng/mLDDU (<230); PTT 27.7 SEC (25-37)
[2018-03-05 19:42] LABS: CHLORIDE 107 mEq/L (99-109); POTASSIUM 3.9 mEq/L (3.7-5.4); SODIUM 139 mEq/L (136-147)
[2018-03-05 19:43] LABS: GLUCOSE 90 mg/dL (70-99)
[2018-03-05 19:47] LABS: GFR ESTIMATE (CALCULATED) > 59 mL/min/
[2018-03-05 19:48] LABS: TROP-I INTERPRETATION NEGATIVE; TROPONIN-I < 0.01 ng/mL (0.0-0.30); UREA NITROGEN (BUN) 10 mg/dL (9-23)
[2018-03-05] MEDS ORDERED: CITALOPRAM HBR20 MG PO (22:31)
[2018-03-05] MEDS ORDERED: PRAVACHOL10 MG PO (22:31)
[2018-03-05] MEDS ORDERED: LORAZEPAM0.5 MG PO (22:31)
[2018-03-05] MEDS ORDERED: LEVOTHYROXINE75 MCG PO (22:31)
[2018-03-05] MEDS ORDERED: ESOMEPRAZOLE MA40 MG PO (22:32)
[2018-03-05 22:51] LABS: THYROTROPIN (TSH) 2.8 MIU/L (0.4-5.5)
[2018-03-05 23:29] VITALS: BP 109/55
[2018-03-06] VITALS (7 sets, daily range): BP systolic 96–138; BP diastolic 55–72
[2018-03-06 01:12] LABS: TROP-I INTERPRETATION NEGATIVE; TROPONIN-I < 0.01 ng/mL (0.0-0.30)
[2018-03-06 07:04] LABS: ALBUMIN 3.9 G/DL (3.2-4.8); DIRECT BILIRUBIN 0.1 mg/dL (0.0-0.3); TOTAL BILIRUBIN 0.7 MG/DL (0.0-1.0)
[2018-03-06 07:09] LABS: ALKALINE PHOSPHATASE 62 IU/L (3-129); ALT (GPT) 10 IU/L (3-49); AST (GOT) 17 IU/L (2-34); LIPASE 17 U/L (1.0-51.0); TOTAL PROTEIN 6.1 G/DL (6.4-8.3)
[2018-03-06 07:27] LABS: TROP-I INTERPRETATION NEGATIVE; TROPONIN-I < 0.01 ng/mL (0.0-0.30)
[2018-03-07 07:45] VITALS: BP 109/63
== END 2018-03-07 12:13 | disposition home or self-care (01) ==
LOC: EME 19:00 → RME 19:00 → EDOF 22:25 → ENRESERV 22:26 → 4SOUTH 23:17
PROVIDERS: Nurse Practitioner Family; Physician Assistant
DX: R07.89 Other chest pain (principal); R00.1 Bradycardia, unspecified; F25.9 Schizoaffective disorder, unspecified; E46 Unspecified protein-calorie malnutrition; E11.9 Type 2 diabetes mellitus without complications; R42 Dizziness and giddiness; F32.9 Major depressive disorder, single episode, unspecified; F41.9 Anxiety disorder, unspecified; J44.9 Chronic obstructive pulmonary disease, unspecified; E78.5 Hyperlipidemia, unspecified; E03.9 Hypothyroidism, unspecified; F03.90 Unspecified dementia, unspecified severity, without behavioral disturbance, psychotic disturbance, mood disturbance, and anxiety; Z86.718 Personal history of other venous thrombosis and embolism; Z99.81 Dependence on supplemental oxygen; Z98.890 Other specified postprocedural states; F17.210 Nicotine dependence, cigarettes, uncomplicated; Z79.01 Long term (current) use of anticoagulants; Z82.49 Family history of ischemic heart disease and other diseases of the circulatory system; Z90.710 Acquired absence of both cervix and uterus; Z88.2 Allergy status to sulfonamides
CPT/HCPCS: 71046; 80048; 80076; 83690; 84439; 84443; 84484; 85027; 85379; 85610; 85730; 93005; 93971; 94640; 94799; 99281; 99285; G0378; G8978 GP CK; G8979 GP CI; G8980 GP CK; G8987 CK; G8988 CI; G8989 GO CK